=== PATIENT | female | born 2000 | race Two or more races ===

== ENCOUNTER 2019-10-20 13:47 | Emergency (ER) | payer BC ==
[2019-10-20] MEDS ORDERED: NORMAL SALINE 1000 ML 1,000 ML IV ONE ×2 (13:54→16:31)
--- NOTE | 2019-10-20 14:00 | ER Document Report ---
ED General - General Stated Complaint: POSSIBLE OVERDOSE - HPI Notes: Chief complaint: Intentional overdose History of present illness: 19-year-old female transported here via EMS after 911 call was received for intentional overdose. Patient apparently has a history of depression and is reported to have intentionally ingested within the last 1 hour 10 tablets of Zoloft 25 mg and 10 tablets of hydroxyzine 25 mg. EMS noted that the patient was obtunded but responding to painful stimuli and protecting airway with stable vital signs. Blood sugar in the field was normal. will be coming but is not here currently. - Related Data Allergies/Adverse Reactions: No Known Allergies Allergy (Unverified 10/20/19 16:01) Past Medical History - General Information source: Emergency Med Personnel Cannot obtain history due to: Altered mental status - Social History Smoking Status: Unknown if Ever Smoked Family History: Reviewed & Not Pertinent Psychiatric Medical History: Reports: Hx Depression Review of Systems - Review of Systems -: Yes ROS unobtainable due to patient's medical condition Physical Exam - Vital signs Vitals: Resp Pulse Ox 15 100 10/20/19 13:50 10/20/19 13:50 - Notes Notes: GENERAL: Well-developed well-nourished female of approximately reported age who is deeply obtunded. SKIN: Dry. Good turgor no rashes. HEAD: Normocephalic atraumatic. EYES: PERRLA. Pupils are mid position. Gaze conjugate. Conjunctivae and sclerae clear. EARS: CANALS AND TMS CLEAR. NOSE: CLEAR. MOUTH: Moist mucosa. Good dentition. No stridor or edema. No drooling. Throat: No edema. Gag reflex intact. NECK: Supple. No masses or thyromegaly. No adenopathy. Carotids 2+ without bruits. No JVD. BACK: Symmetrical without tenderness. CHEST: Respirations unlabored. Breath sounds clear and symmetrical. HEART: Regular rhythm. No murmur gallop or rub. ABDOMEN: Soft nontender without masses, organomegaly or rebound. Bowel sounds normally active. No bruits. GENITALIA: Normal female. EXTREMITIES: No edema. No calf tenderness. Cap refill less than 1.5 seconds. Dorsalis pedis and posterior tibial pulses 3+ and symmetrical. NEUROLOGICAL: GCS 10. Eyes open to painful stimuli only. Makes unintelligible sounds. Squeezes fingers on command. Moves extremities symmetrically in response to painful stimuli Course - Re-evaluation Re-evalutation: 10/20/19 16:34 Patient was quite obtunded with a GCS of about 10 upon arrival after taking an intentional overdose of 10 tablets of 25 mg hydroxyzine and also about 10 tabl ets of 25 mg Zoloft. She was adequately protecting her airway. She was hemodynamically stable. Patient remained on continuous cardiac monitoring was kept n.p.o. and given IV normal saline hydration. CBC and comprehensive metabolic profile were normal. Her EKG showed no alteration of axis or intervals. Acetaminophen and salicylate levels were undetectable and alcohol was less than 10. No significant cardiac dysrhythmias were observed in the emergency department during the first 3 hours of observation. The patient has remained hemodynamically stable and now has a GCS of 14. I have spoken with behavioral health service, Dr. Mick Zuniga, regarding IVC and we have submitted a formal consultation request. [place] poison control was consulted by telephone and they have recommended a total of 6 hours observation medically in the emergency department before she could be cleared to go to inpatient psychiatry service. 10/20/19 20:27 Patient is now awake alert and oriented x3. She is able to ambulate without assistance. Repeat EKG was normal. She remains hemodynamically stable. O2 saturation on room air is normal. Patient has been seen by Dr. Zuniga from the behavioral medicine service who feels she is not actively suicidal at this time and she does not wish to hold patient on IVC or send her to an inpatient facility. She is provided crisis line information the patient and and has arranged for follow-up outpatient with in the next 24 hours. Medications are disposed of in the emergency department prior to discharge. is comfortable taking patient home at this time. - Vital Signs Vital signs: Temp Pulse Resp BP Pulse Ox 99.2 F 16 111/67 100 10/20/19 14:02 10/20/19 17:00 10/20/19 17:00 10/20/19 17:00 - Laboratory Result Diagrams: 10/20/19 13:25 10/20/19 13:25 Laboratory results interpreted by me: 10/20/19 10/20/19 13:25 14:01 Glucose 137 H Calcium 10.3 H AST 37 H Urine Protein 30 H Urine Ketones TRACE H Salicylates < 1.0 L Acetaminophen < 10 L - EKG Interpretation by Me Additional EKG results interpreted by me: 10/20/19 14:05 Twelve-lead EKG from 1354 hrs. reviewed contemporaneously by me. Indication for study: Altered mental status secondary to intentional toxic ingestion Normal sinus rhythm. Rate 80. Normal intervals. Normal QRS axis of +[address]/T wave changes. No prior tracing for comparison. Interpretation: Normal tracing. 10/20/19 17:29 A second, repeat EKG was reviewed by me contemporaneously at 1645 hrs. Indication for study: Cyclic antidepressant overdose Normal sinus rhythm Rate 72 Normal intervals Normal QRS axis of +[address]/T wave changes No prior tracing available for comparison Interpretation: Normal tracing Discharge - Discharge Clinical Impression: Intentional polydrug overdose Condition: Stable Disposition: HOME, SELF-CARE Additional Instructions: Contact crisis line for follow-up within the next 24 hours as instructed. You may return here immediately for any new or worsening symptoms.
[2019-10-20 14:07] LABS: ABSOLUTE LYMPHOCYTES (AUTO) 1.7 10^3/uL (0.5-4.7); ABSOLUTE MONOCYTES (AUTO) 0.2 10^3/uL (0.1-1.4); BASOPHILS % (AUTO) 0.7 % (0-2); EOSINOPHILS % (AUTO) 0.7 % (0-6); HEMATOCRIT 39.2 % (36.0-47.0); HEMOGLOBIN 13.3 g/dL (12.0-15.5); LYMPHOCYTES % (AUTO) 41.8 % (13-45); MEAN CORPUSCULAR HEMOGLOBIN 29.7 pg (27.0-33.4); MEAN CORPUSCULAR HGB CONC 33.9 g/dL (32.0-36.0); MEAN CORPUSCULAR VOLUME 88 fl (80-97); MONOCYTES % (AUTO) 6.2 % (3-13); PLATELET COUNT 267 10^3/uL (150-450); RED BLOOD COUNT 4.48 10^6/uL (3.72-5.28); SEGMENTED NEUTROPHILS % (AUTO) 50.6 % (42-78); TOTAL CELLS COUNTED % (AUTO) 100 %
[2019-10-20 14:16] LABS: ACETAMINOPHEN < 10 ug/mL (10-30); ALBUMIN 4.8 g/dL (3.5-5.0); ALCOHOL < 10 mg/dL (NONE DETECTED); ALKALINE PHOSPHATASE 54 U/L (38-126); ANION GAP 14 (5-19); ASPARTATE AMINO TRANSFERASE 37 U/L (14-36); BILIRUBIN,DIRECT 0.1 mg/dL (0.0-0.4); BILIRUBIN,TOTAL 0.8 mg/dL (0.2-1.3); BLOOD UREA NITROGEN 18 mg/dL (7-20); CALCIUM 10.3 mg/dL (8.4-10.2); CARBON DIOXIDE 22 mmol/L (22-30); CHLORIDE 103 mmol/L (98-107); GLUCOSE 137 mg/dL (75-110); POTASSIUM 3.8 mmol/L (3.6-5.0); SALICYLATE < 1.0 mg/dL (2.0-20.0); TOTAL PROTEIN 7.9 g/dL (6.3-8.2)
[2019-10-20 14:35] LABS: APPEARANCE,URINE CLEAR; BILIRUBIN,URINE NEGATIVE (NEGATIVE); COLOR,URINE YELLOW; GLUCOSE, URINE NEGATIVE (NEGATIVE); KETONES,URINE TRACE mg/dL (NEGATIVE); PROTEIN,URINE 30 mg/dL (NEGATIVE); URINE SPECIFIC GRAVITY 1.032; UROBILINOGEN,URINE NEGATIVE mg/dL (<2.0)
--- NOTE | 2019-10-20 14:50 | RADIOLOGY REPORT (SQ) ---
EXAM DESCRIPTION: CHEST SINGLE VIEW IMAGES COMPLETED DATE/TIME: 10/20/2019 1:29 pm REASON FOR STUDY: OD COMPARISON: None. EXAM PARAMETERS: NUMBER OF VIEWS: One view. TECHNIQUE: Single frontal radiographic view of the chest acquired. RADIATION DOSE: NA LIMITATIONS: None. FINDINGS: LUNGS AND PLEURA: No opacities, masses or pneumothorax. No pleural effusion. MEDIASTINUM AND HILAR STRUCTURES: No masses. Contour normal. HEART AND VASCULAR STRUCTURES: Heart normal in size. Normal vasculature. BONES: No acute findings. HARDWARE: None in the chest. OTHER: No other significant finding. IMPRESSION: NO ACUTE RADIOGRAPHIC FINDING IN THE CHEST. TECHNICAL DOCUMENTATION: JOB ID: [id number] 2010 [employer]- All Rights Reserved Reading location - IP/workstation name: [id number]
[2019-10-20 14:53] LABS: URINE AMPHETAMINES SCREEN NEGATIVE; URINE BARBITURATES SCREEN NEGATIVE; URINE BENZODIAZEPINES SCREEN NEGATIVE; URINE COCAINE SCREEN NEGATIVE; URINE MARIJUANA (THC) SCREEN NEGATIVE; URINE METHADONE SCREEN NEGATIVE; URINE PHENCYCLIDINE SCREEN NEGATIVE
--- NOTE | 2019-10-20 18:35 | EKG REPORT ---
SEVERITY:- NORMAL ECG - SINUS RHYTHM : Confirmed by: Walter Castro MD 20-Oct-2019 18:35:06
--- NOTE | 2019-10-20 18:35 | EKG REPORT ---
SEVERITY:- NORMAL ECG - SINUS RHYTHM : Confirmed by: Walter Castro MD 20-Oct-2019 18:34:51
--- NOTE | 2019-10-20 20:30 | ER Document Report ---
Doctor's Note Notes: 10/20/19 17:20 Met with Patient who reported taking an overdose of Zoloft and hydroxyzine secondary to an increase in marital stressors. Patient reported she was to her in February 2019 and beginning shortly thereafter there has been an increase in marital strife. Patient reported she and her had a large argument last evening that led her to feel very alone and as though she had no one to talk to too. She reported she is from [place] and since being in [place] she has had difficulty with making friends and connecting with anyone. She reported she has brought up to her the idea of marital counseling but it has not yet happened and she is unsure as to the reason. She indicated she is interested in individual counseling but stated virtual counseling is not of interest and because her is retired from the and home all day she does not feel as though she has any privacy. She reported a previous suicide attempt when she was in middle school and indicated it resolved when she entered therapy. Patient reported during this overdose attempt she thought long-term through "why am I even doing this?" Patient reported she is very interested in individual therapy but would prefer in person versus virtual counseling. Patient was excited to know that mobile [employer] a / service was available for her to access should it be needed. Patient reported she wants to make this marriage work as she really loves her . Patient reported she is prescribed 25 mg Zoloft for the past 3 months from her PCP in [place]. She reported she does not feel as though it is working and stated she would rather talk through her difficulties than take medication. Spoke with Nitish who indicated he and the Patient have been having arguments over the past few months secondary to some marital/personal problems. He indicated his has been slightly depressed at times but felt it was due to their ongoing problems. He stated he [facility] a [facility]. He reported he applied to get his placed on [place] insurance 5 months ago and nothing has happened yet either. reports he brought in all the medication from home wishing to dispose of all it for fear she might to try to Overdose again. The medications unfortunately included his medications that he has been prescribed. He was provided education on unnecessarily stopping mental health medications and the dangerousness behind that, however, he stated he already contacted his prescribing physician who advised him that since he had not been taking them in a week it was safe to discontinue and dispose of the medications. was provided information on different places for safe disposal. went on to inquire about obtaining patient's medical record and was advised he would not have access unless she provided expressed written consent. Patient was alert and oriented to person, place, time, and circumstance. Mood was cooperative and affect was expressive. Patient denied and regretted suicidal ideation, intent or plan. She denied homicidal ideation, intent or plan. She denied auditory/visual hallucinations and there was no evidence of delusions. Thought processes were rational, logical and linear. Conversational speech was within normal limits for rate, tone, and prosody. Intellectual abilities were estimated within the average range. Eye contact was well maintained. Attention and concentration was within normal limits, while insight, judgment, and impulse control was fair. Clinical Impression: Situational Depression secondary to marital infidelity Limited Coping secondary to social isolation Impression/Plan: Patient is clear from acute psychiatric services. Patient reported feeling regretful for her actions and voiced her reason for taking the overdose of medication. She reported taking 8-25 mg Zoloft and 8 25 mg Vistaril. During assessment she reported forward thinking, stating she is looking forward to starting her new job on Monday working with [employer]. She reported she is happy to know there are available resources in [place] that she can access for individual therapy and 05/09 available resources as well. She reported wanting to engage in marital therapy as she loves her and hopes that by each of them working on their issues together they can eventually get to a good space. Patient denied wanting to try a different medication as she feels her depression is situational and with available resources she is hoping to work through her problems with talk therapy versus taking medication. Conversation with yielded little concern about Patient returning home except he wanted to ensure medications were secured. He also asked for assistance in speaking with [facility] to see if the behavioral health team could assist in expediting the marital counseling referral. Advised him that given it is a holiday weekend the team would make every effort to do so on Monday [facility]. indicated he was locking the medication bottles in the trunk of his car and the patient would not have access and that he would properly dispose of them tomorrow during the day when it was a better time. He agreed to take the patient home when discharged and allow her to rest versus trying to conversate regarding this situation. Patient appeared to be supportive and the Patient stated she felt comfortable with being in the home. Patient was given the option of staying in the ED overnight for ongoing medical observation but she reported (and appeared) to become more anxious about this option. Thus, given this provider feels comfortable from a psychiatric standpoint with Patient's mental status and forward thinking regarding follow up, it seems appropriate for psychiatric clearance. Case discussed with attending ED Provider who voiced his concerns regarding the Patient's discharge given her impulsive act. Discussed the supervision in place for the Patient, discussed her regret about the overdose and her willingness and eagerness to move forward.
[2019-10-20 21:01] VITALS: BP 109/62
== END 2019-10-20 21:15 | disposition home or self-care (01) ==
LOC: ER 13:47
DX: T43.222A Poisoning by selective serotonin reuptake inhibitors, intentional self-harm, initial encounter (principal); T43.592A Poisoning by other antipsychotics and neuroleptics, intentional self-harm, initial encounter; R41.82 Altered mental status, unspecified; Z65.8 Other specified problems related to psychosocial circumstances; X58.XXXA Exposure to other specified factors, initial encounter
CPT/HCPCS: 93005; 99285; 96360; 96361; 36415; 80307 ×4; 84703; 85025; 80053; 81001; 71045; 93010; J7030